=== PATIENT | male | born 1960 | race American Indian/Alaskan Native ===

== ENCOUNTER 2021-09-27 22:27 | Emergency (ER) | payer SELFPAY ==
[2021-09-28 02:15] VITALS: BP 101/70
== END 2021-09-28 17:21 | disposition left against medical advice (07) ==
LOC: ED 22:27
DX: L89.219 Pressure ulcer of right hip, unspecified stage (principal); Z53.21 Procedure and treatment not carried out due to patient leaving prior to being seen by health care provider